=== PATIENT | female | born 1955 | race Caucasian/White ===

== ENCOUNTER → 2016-09-27 | Emergency (ER) | payer SELFPAY ==
[~2016-09-27] VITALS: Ht 167.6 cm; Wt 83.9 kg
[~2016-09-27] MED LIST: ASPIRIN 81 MG CHEW (CHILDREN'S ASA) PO ONE; HYDR-3820 PO; KCL 10 MEQ TAB (MICRO K) PO ONE; KETOROLAC 30 MG/ML VIAL IVP ONE; LEVO25TA5 PO; LISI-556 PO; MELO15TA39 PO; RX-NITROGLYCERIN 0.4 MG TAB BTL 25'S SL PRN
[2016-09-27 16:34] LABS: BASOPHILS % (AUTO) 0 % (0-10); EOSINOPHILS # (AUTO) 0.1 10^3/uL (0.0-0.3); EOSINOPHILS % (AUTO) 1 % (0-10); LYMPHOCYTES # (AUTO) 3.8 X 10^3 (1.0-4.0); LYMPHOCYTES % (AUTO) 42 % (12-44); MEAN CORPUSCULAR HEMOGLOBIN 34 PG (25-34); MEAN CORPUSCULAR HGB CONC 35 G/DL (32-36); MEAN CORPUSCULAR VOLUME 96 FL (80-99); MEAN PLATELET VOLUME 10.8 FL (7.4-10.4); MONOCYTES # (AUTO) 0.6 X 10^3 (0.0-1.0); MONOCYTES % (AUTO) 7 % (0-12); NEUTROPHILS # (AUTO) 4.4 X 10^3 (1.8-7.8); NEUTROPHILS % (AUTO) 50 % (42-75); PLATELET COUNT 210 10^3/uL (130-400); RED BLOOD COUNT 4.03 10^6/uL (4.35-5.85); RED CELL DISTRIBUTION WIDTH 12.3 % (10.0-14.5)
--- NOTE | 2016-09-27 16:43 | ED Chest Pain ---
General Chief Complaint: Chest Pain Stated Complaint: CP/ELEV BP Source: patient Exam Limitations: no limitations History of Present Illness Time seen by provider: 16:21 Initial Comments This 60-year-old woman presents to the emergency room with complaints of pain under the left breast and elevated blood pressure at home that started yesterday. She has also had some sensation of disequilibrium that occurred about 2 days ago. 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 She has no known coronary artery disease or pulmonary disease. She is a smoker of tobacco and marijuana. She denies any alcohol or drug use. Pain is presently a 5 out of 10 and is heavy in nature. It radiates to her shoulders. This seems to be difficult to separate from her chronic back pain. She reports feeling better lying down. Left upper and lower chest are tender to palpation. Allergies and Home Medications Allergies Coded Allergies: Penicillins (Verified Allergy, Unknown, 09/27/16) Home Medications Hydrocodone/Acetaminophen 1 Each Tablet, 1 EACH PO, (Reported) Levothyroxine Sodium 25 Mcg Tablet, 25 MCG PO, (Reported) Lisinopril 5 Mg Tablet, 5 MG PO DAILY, (Reported) Meloxicam 15 Mg Tablet, 15 MG PO, (Reported) Review of Systems Constitutional: no symptoms reported EENTM: No Symptoms Reported Respiratory: See HPI Cardiovascular: See HPI Gastrointestinal: No Symptoms Reported Genitourinary: No Symptoms Reported Musculoskeletal: no symptoms reported Skin: no symptoms reported Psychiatric/Neurological: See HPI Endocrine: No Symptoms Reported Past Qihtcrz-Gbkrrt-Tfgbqr Hx Patient Social History Alcohol Use: Denies Use Recreational Drug Use: Yes Surgeries HX Surgeries: Yes Surgeries: Gallbladder, Hysterectomy Respiratory Hx Respiratory Disorders: Yes (tobaccoism) Cardiovascular Hx Cardiac Disorders: Yes Cardiac Disorders: Hypertension Neurological Hx Neurological Disorders: No Genitourinary Hx Genitourinary Disorders: No Gastrointestinal Hx Gastrointestinal Disorders: No Musculoskeletal Hx Musculoskeletal Disorders: Yes Musculoskeletal Disorders: Arthritis, Chronic Back Pain Endocrine Hx Endocrine Disorders: Yes Endocrine Disorders: Hypothyroidsim Physical Exam Vital Signs Vital Sign - Last 12Hours 09/27/16 16:19 Temp 99.0 Pulse 100 Resp 18 B/P (MAP) 145/84 Pulse Ox 98 O2 Delivery Room Air Capillary Refill : General Appearance: WD/WN, Mild Distress HEENT: PERRL/EOMI, Normal ENT Inspection Neck: Normal Inspection Respiratory: Lungs Clear, Normal Breath Sounds, No Accessory Muscle Use, No Respiratory Distress, Other (left chest significantly tender to palpation) Cardiovascular: Regular Rate, Rhythm, No Edema, No Murmur Gastrointestinal: Normal Bowel Sounds, Non Tender, Soft Extremity: Normal Inspection, Non Tender, No Calf Tenderness, No Pedal Edema, Other (negative Nancy) Neurologic/Psychiatric: Alert, Oriented x3, No Motor/Sensory Deficits, Normal Mood/Affect, signs cleaner II-XII Norm as Tested Skin: Normal Color, Warm/Dry Progress/Results/Core Measures Results/Orders Lab Results Laboratory Tests Test 09/27/16 16:27 Range/Units White Blood Count 9.0 4.3-11.0 10^3/uL Red Blood Count 4.03 L 4.35-5.85 10^6/uL Hemoglobin 13.6 11.5-16.0 G/DL Hematocrit 39 35-52 % Mean Corpuscular Volume 96 80-99 FL Mean Corpuscular Hemoglobin 34 25-34 PG Mean Corpuscular Hemoglobin Concent 35 32-36 G/DL Red Cell Distribution Width 12.3 10.0-14.5 % Platelet Count 210 130-400 10^3/uL Mean Platelet Volume 10.8 H 7.4-10.4 FL Neutrophils (%) (Auto) 50 42-75 % Lymphocytes (%) (Auto) 42 12-44 % Monocytes (%) (Auto) 7 0-12 % Eosinophils (%) (Auto) 1 0-10 % Basophils (%) (Auto) 0 0-10 % Neutrophils # (Auto) 4.4 1.8-7.8 X 10^3 Lymphocytes # (Auto) 3.8 1.0-4.0 X 10^3 Monocytes # (Auto) 0.6 0.0-1.0 X 10^3 Eosinophils # (Auto) 0.1 0.0-0.3 10^3/uL Basophils # (Auto) 0.0 0.0-0.1 10^3/uL Prothrombin Time 12.3 12.2-14.7 SEC INR Comment 0.9 0.8-1.4 Activated Partial Thromboplast Time 32 24-35 SEC Sodium Level 139 135-145 MMOL/L Potassium Level 3.2 L 3.6-5.0 MMOL/L Chloride Level 101 98-107 MMOL/L Carbon Dioxide Level 25 21-32 MMOL/L Anion Gap 13 5-14 MMOL/L Blood Urea Nitrogen 15 7-18 MG/DL Creatinine 1.18 0.60-1.30 MG/DL Estimat Glomerular Filtration Rate 47 BUN/Creatinine Ratio 13 Glucose Level 113 H 70-105 MG/DL Calcium Level 10.1 8.5-10.1 MG/DL Magnesium Level 2.4 1.8-2.4 MG/DL Total Bilirubin 0.5 0.1-1.0 MG/DL Aspartate Amino Transf (AST/SGOT) 15 5-34 U/L Alanine Aminotransferase (ALT/SGPT) 10 0-55 U/L Alkaline Phosphatase 54 40-136 U/L Myoglobin 53.9 10.0-92.0 NG/ML Troponin I < 0.30 <0.30 NG/ML Total Protein 7.7 6.4-8.2 G/DL Albumin 4.8 H 3.2-4.5 G/DL Thyroid Stimulating Hormone (TSH) 2.46 0.35-4.94 UIU/ML Free Thyroxine 1.11 0.70-1.48 NG/DL My Orders Orders - MISHEL WHALEN MD Cbc With Automated Diff (09/27/16 16:29) Magnesium (09/27/16 16:29) Chest 1 View, Ap/Pa Only (09/27/16 16:29) Ekg Tracing (09/27/16 16:29) Cardiac Profile 1 (09/27/16 16:29) Comprehensive Metabolic Panel (09/27/16 16:29) Myoglobin Serum (09/27/16 16:29) Protime With Inr (09/27/16 16:29) Partial Thromboplastin Time (09/27/16 16:29) O2 (09/27/16 16:29) Monitor-Rhythm Ecg Trace Only (09/27/16 16:29) Aspirin Chewable Tablet (Baby Aspirin Ch (09/27/16 16:30) Rx-Nitroglycerin Sl Tabs (Rx-Nitrostat S (09/27/16 16:30) Saline Lock/Iv-Start (09/27/16 16:29) Ketorolac Injection (Toradol Injection) (09/27/16 16:45) Thyroid Stimulating Hormone (09/27/16 16:55) Free T4 (Free Thyroxine) (09/27/16 16:55) Potassium Chloride (Tablet) (Klor Con Ta (09/27/16 18:00) Medications Given in ED Vital Signs/I&O Vital Sign - Last 12Hours 09/27/16 09/27/16 09/27/16 16:19 16:39 18:13 Temp 99.0 Pulse 100 58 Resp 18 18 B/P (MAP) 145/84 Pulse Ox 98 98 O2 Delivery Room Air Room Air Progress Note : Time: 16:43 Progress Note Patient is significant improvement in her pain with nitroglycerin. Since pain seems musculoskeletal in nature with tenderness to palpation. Toradol is being ordered. ECG Initial ECG Impression Date: September 27, 2016 Initial ECG Impression Time: 16:23 Initial ECG Rate: 106 Initial ECG Rhythm: S.Tach Initial ECG Intervals: Normal Comment Sinus tachycardia with no ST elevation or depression. No abnormal intervals or axis deviation. Diagnostic Imaging Diagonstic Imaging: Xray Plain Films/CT/US/NM/MRI: chest Comments Chest x-ray viewed by me and report reviewed. See report below: NAME: TRACIE COELHO MED REC#: [id number] PT STATUS: REG ER : 1955 PHYSICIAN: MISHEL WHALEN MD ADMIT DATE: 09/27/16/ER Draft Date of Exam:09/27/16 CHEST 1 VIEW, AP/PA ONLY INDICATION: Chest pain. COMPARISON: None. FINDINGS: A single frontal view of the chest demonstrates normal heart size and pulmonary vascularity. The lungs are well aerated and clear. No large pleural effusion or pneumothorax is seen. The visualized osseous structures show no acute abnormalities. There is aortic atherosclerosis. IMPRESSION: No acute cardiopulmonary process. Dictated on workstation # [id number] Dict: 09/27/16 1649 Trans: 09/27/16 1652 [id number] Interpreted by: ANN MCQUEEN Departure Impression Impression: Primary Impression: Chest wall pain Additional Impression: Hypokalemia Disposition: 01 HOME, SELF-CARE Condition: Improved Departure-Patient Inst. Decision time for Depature: 17:45 Referrals: NO,LOCAL PHYSICIAN (PCP/Family) Primary Care Physician Patient Instructions: Chest Pain That Is Not Caused by the Heart (DC) Add. Discharge Instructions: You may take ibuprofen up to 600 mg every 6 hours as needed for pain. You may additionally take Tylenol (acetaminophen) up to 1000 mg every 6 hours as needed for pain. Use the prednisone steroid as prescribed to help calm inflammation in your chest. Follow-up with your primary care provider as soon as possible. Call the office first thing in the morning to schedule the appointment. Return to the emergency room if symptoms worsen. Work toward quitting smoking. All discharge instructions reviewed with patient and/or family. Voiced understanding. MISHEL WHALEN MD September 27, 2016 16:43
[2016-09-27 16:52] LABS: ALANINE AMINOTRANSFERASE 10 U/L (0-55); ALBUMIN 4.8 G/DL (3.2-4.5); ANION GAP 13 MMOL/L (5-14); ASPARTATE AMINO TRANSFERASE 15 U/L (5-34); BILIRUBIN,TOTAL 0.5 MG/DL (0.1-1.0); BLOOD UREA NITROGEN 15 MG/DL (7-18); BUN/CREATININE RATIO 13; CALCIUM 10.1 MG/DL (8.5-10.1); CARBON DIOXIDE 25 MMOL/L (21-32); CHLORIDE 101 MMOL/L (98-107); CREATININE SERUM 1.18 MG/DL (0.60-1.30); GFR ESTIMATED 47; GLUCOSE 113 MG/DL (70-105); POTASSIUM 3.2 MMOL/L (3.6-5.0); SODIUM 139 MMOL/L (135-145); TOTAL PROTEIN 7.7 G/DL (6.4-8.2)
--- NOTE | 2016-09-27 16:53 | Diagnostic Imaging Report ---
INDICATION: Chest pain. COMPARISON: None. FINDINGS: A single frontal view of the chest demonstrates normal heart size and pulmonary vascularity. The lungs are well aerated and clear. No large pleural effusion or pneumothorax is seen. The visualized osseous structures show no acute abnormalities. There is aortic atherosclerosis. IMPRESSION: No acute cardiopulmonary process. Dictated by: Dictated on workstation # [id number]
[2016-09-27 17:12] LABS: MYOGLOBIN SERUM 53.9 NG/ML (10.0-92.0)
[2016-09-27 17:31] LABS: THYROID STIMULATING HORMONE 2.46 UIU/ML (0.35-4.94)
[2016-09-27 17:53] LABS: MAGNESIUM 2.4 MG/DL (1.8-2.4)
[2016-09-27 18:13] VITALS: BP 137/69
[2016-09-27 20:54] LABS: INR 0.9 (0.8-1.4); PROTHROMBIN TIME PATIENT 12.3 SEC (12.2-14.7)
== END | disposition home or self-care (01) ==
LOC: EDUNIT# 16:19 → ER 16:21
DX: R07.89 Other chest pain (principal); E87.6 Hypokalemia; I10 Essential (primary) hypertension; F17.210 Nicotine dependence, cigarettes, uncomplicated; F12.90 Cannabis use, unspecified, uncomplicated; Z79.899 Other long term (current) drug therapy
CPT/HCPCS: 36415; 71010; 80053; 83735; 83874; 84439; 84443; 84484; 85025; 85610; 85730; 93005; 93041

== ENCOUNTER 2019-10-09 11:50 | Emergency (ER) | payer MEDICAID, OTHER ==
[~2019-10-09] VITALS: Ht 165.1 cm; Wt 66.7 kg
[2019-10-09 11:50] VITALS: BP 167/74
[~2019-10-09 11:50] MED LIST changes: +ACHYD1T PO; -ASPIRIN 81 MG CHEW (CHILDREN'S ASA) PO ONE; -HYDR-3820 PO; -KCL 10 MEQ TAB (MICRO K) PO ONE; -KETOROLAC 30 MG/ML VIAL IVP ONE; -RX-NITROGLYCERIN 0.4 MG TAB BTL 25'S SL PRN
[2019-10-09] MEDS ORDERED: NITROGLYCERIN 0.4 MG SL TABS BTL 25'S SL ONE (11:58)
[2019-10-09] MEDS: NITROGLYCERIN 0.4 MG SL TABS BTL 25'S SL PRN ×2 (12:01→13:14)
--- NOTE | 2019-10-09 12:06 | ED Chest Pain ---
General Stated Complaint: CHEST PAIN Source: patient Exam Limitations: no limitations History of Present Illness Date Seen by Provider: Oct 09, 2019 Time Seen by Provider: 12:02 Initial Comments To ER with reports of chest pain. She was at a wellness clinic in [facility] where she is from and she complained of some left-sided facial abnormal sensation as well as left arm abnormal sensation that began yesterday around 5 PM. She has no trouble walking or speaking. She has no visual changes or troubles. She also reports central chest pain. They gave 325 mg of aspirin at the clinic and sent her here to the emergency room with concern of stroke. However she states the left face and left arm abnormal sensation seems to originate in the chest and spread outward from there. She believes this chest pain was caused by stress from her who is 72 and supposed to only drink 2 beers per day but yesterday he and a friend drink a 30 pack. To help cope with this she took a Xanax. She then went to sleep and awakened this morning still not feeling well. She also has some suprapubic abdominal discomfort which she re lates to constipation from hydrocodone. She smokes one pack of cigarettes per day. Timing/Duration: changing over time Severity/Quality: moderate Location: central Radiation: no radiation Prior CP/Workup: no prior chest pain Allergies and Home Medications Allergies Coded Allergies: Penicillins (Verified Allergy, Unknown, 09/27/16) Home Medications Lisinopril 5 Mg Tablet, 5 MG PO DAILY, (Reported) Patient Home Medication List Home Medication List Reviewed: Yes Review of Systems Review of Systems Constitutional: see HPI; No chills, No fever EENTM: No Symptoms Reported Respiratory: No Symptoms Reported; Denies Cough, Denies Shortness of Air Cardiovascular: Chest Pain Gastrointestinal: No Symptoms Reported; Denies Difficulty Swallowing, Denies Nausea Genitourinary: No Symptoms Reported Musculoskeletal: no symptoms reported Skin: no symptoms reported Psychiatric/Neurological: See HPI, Paresthesia Endocrine: No Symptoms Reported Past Lkwuzmk-Vcbklx-Rkwkjd Hx Past Medical History Surgeries: Yes Gallbladder, Hysterectomy Cardiac: Yes Hypertension Neurological: No Genitourinary: No Gastrointestinal: No Musculoskeletal: Yes Arthritis, Chronic Back Pain Hypothyroidsim Physical Exam Vital Signs Vital Signs - First Documented 10/09/19 11:50 Pulse 83 Resp 15 B/P (MAP) 167/74 (105) Pulse Ox 99 O2 Delivery Room Air Capillary Refill : Height, Weight, BMI Height: 5'6.00" Weight: 185lbs. oz. 83.140804ag; BMI Method:Stated General Appearance: No Apparent Distress, Thin (appears much older than stated age) Respiratory: No Accessory Muscle Use, No Respiratory Distress Gastrointestinal: Normal Bowel Sounds, Non Tender, Soft Extremity: Normal Capillary Refill, Normal Inspection Neurologic/Psychiatric: Alert, Oriented x3 Skin: Normal Color, Warm/Dry Other comments NIH score is one for mild sensory change to left arm and left cheek. NO sensory change to left leg. No weakness of any extremity, no drift of any extremity. Speech is clear and appropriate. Progress/Results/Core Measures Results/Orders Lab Results Laboratory Tests Test 10/09/19 11:57 10/09/19 14:14 Range/Units White Blood Count 7.0 4.3-11.0 10^3/uL Red Blood Count 4.02 L 4.35-5.85 10^6/uL Hemoglobin 13.5 11.5-16.0 G/DL Hematocrit 38 35-52 % Mean Corpuscular Volume 96 80-99 FL Mean Corpuscular Hemoglobin 34 25-34 PG Mean Corpuscular Hemoglobin Concent 35 32-36 G/DL Red Cell Distribution Width 12.3 10.0-14.5 % Platelet Count 169 130-400 10^3/uL Mean Platelet Volume 11.0 H 7.4-10.4 FL Neutrophils (%) (Auto) 59 42-75 % Lymphocytes (%) (Auto) 33 12-44 % Monocytes (%) (Auto) 6 0-12 % Eosinophils (%) (Auto) 2 0-10 % Basophils (%) (Auto) 0 0-10 % Neutrophils # (Auto) 4.1 1.8-7.8 X 10^3 Lymphocytes # (Auto) 2.3 1.0-4.0 X 10^3 Monocytes # (Auto) 0.5 0.0-1.0 X 10^3 Eosinophils # (Auto) 0.1 0.0-0.3 10^3/uL Basophils # (Auto) 0.0 0.0-0.1 10^3/uL Prothrombin Time 12.4 12.2-14.7 SEC INR Comment 0.9 0.8-1.4 Activated Partial Thromboplast Time 32 24-35 SEC D-Dimer 0.44 0.00-0.49 UG/ML Sodium Level 137 135-145 MMOL/L Potassium Level 3.7 3.6-5.0 MMOL/L Chloride Level 100 98-107 MMOL/L Carbon Dioxide Level 25 21-32 MMOL/L Anion Gap 12 5-14 MMOL/L Blood Urea Nitrogen 14 7-18 MG/DL Creatinine 1.58 H 0.60-1.30 MG/DL Estimat Glomerular Filtration Rate 33 BUN/Creatinine Ratio 9 Glucose Level 111 H 70-105 MG/DL Calcium Level 9.6 8.5-10.1 MG/DL Corrected Calcium 8.5-10.1 MG/DL Magnesium Level 1.8 1.6-2.4 MG/DL Total Bilirubin 0.4 0.1-1.0 MG/DL Aspartate Amino Transf (AST/SGOT) 17 5-34 U/L Alanine Aminotransferase (ALT/SGPT) 9 0-55 U/L Alkaline Phosphatase 84 40-136 U/L Myoglobin 42.2 10.0-92.0 NG/ML Troponin I < 0.028 < 0.028 <0.028 NG/ML Total Protein 7.5 6.4-8.2 GM/DL Albumin 4.7 H 3.2-4.5 GM/DL My Orders Orders - JENNY MASSEY APRN Cbc With Automated Diff (10/09/19 11:57) Magnesium (10/09/19 11:57) Chest 1 View, Ap/Pa Only (10/09/19 11:57) Ekg Tracing (10/09/19 11:57) Comprehensive Metabolic Panel (10/09/19 11:57) Myoglobin Serum (10/09/19 11:57) Protime With Inr (10/09/19 11:57) Partial Thromboplastin Time (10/09/19 11:57) O2 (10/09/19 11:57) Monitor-Rhythm Ecg Trace Only (10/09/19 11:57) Lipid Panel (10/10/19 06:00) Ed Iv/Invasive Line Start (10/09/19 11:57) Troponin I (10/09/19 11:57) Ct Head Wo (10/09/19 11:57) Nitroglycerin 0.4 Mg Btl 25's (Nitrostat (10/09/19 12:00) Nitroglycerin 0.4 Mg Btl 25's (Nitrostat (10/09/19 11:58) Fibrin Degradation Products (10/09/19 11:57) Mri Brain W/O Contrast (10/09/19 13:11) Troponin I (10/09/19 13:59) Medications Given in ED Current Medications Medications Dose Ordered Sig/Jerman Route Start Time Stop Time Status Last Admin Dose Admin Nitroglycerin 1 TAB Q 5 MIN X 3 NEEDED PRN SL 10/09/19 12:00 10/09/19 13:14 0.4 MG Vital Signs/I&O 10/09/19 10/09/19 11:50 11:50 Pulse 83 Resp 15 B/P (MAP) 167/74 (105) Pulse Ox 99 O2 Delivery Room Air Room Air Departure Communication (Admissions) 1457-patient states that she is feeling better and wants to go home. She does not want to have an MRI done Impression Primary Impression: Chest pain Qualified Codes: R07.9 - Chest pain, unspecified Disposition: HOME, SELF-CARE Condition: Stable Departure-Patient Inst. Referrals: NO,LOCAL PHYSICIAN (PCP/Family) Primary Care Physician JENNY MASSEY SERVICE ENGINEER Oct 09, 2019 12:06
[2019-10-09 12:07] LABS: BASOPHILS % (AUTO) 0 % (0-10); EOSINOPHILS # (AUTO) 0.1 10^3/uL (0.0-0.3); EOSINOPHILS % (AUTO) 2 % (0-10); HEMATOCRIT 38 % (35-52); HEMOGLOBIN 13.5 G/DL (11.5-16.0); LYMPHOCYTES # (AUTO) 2.3 X 10^3 (1.0-4.0); LYMPHOCYTES % (AUTO) 33 % (12-44); MEAN CORPUSCULAR HEMOGLOBIN 34 PG (25-34); MEAN CORPUSCULAR HGB CONC 35 G/DL (32-36); MEAN CORPUSCULAR VOLUME 96 FL (80-99); MONOCYTES # (AUTO) 0.5 X 10^3 (0.0-1.0); MONOCYTES % (AUTO) 6 % (0-12); NEUTROPHILS # (AUTO) 4.1 X 10^3 (1.8-7.8); NEUTROPHILS % (AUTO) 59 % (42-75); PLATELET COUNT 169 10^3/uL (130-400); RED CELL DISTRIBUTION WIDTH 12.3 % (10.0-14.5)
[2019-10-09 12:21] LABS: ALBUMIN 4.7 GM/DL (3.2-4.5); CHLORIDE 100 MMOL/L (98-107); POTASSIUM 3.7 MMOL/L (3.6-5.0); SODIUM 137 MMOL/L (135-145)
[2019-10-09 12:22] LABS: CALCIUM 9.6 MG/DL (8.5-10.1)
[2019-10-09 12:23] LABS: GLUCOSE 111 MG/DL (70-105); TOTAL PROTEIN 7.5 GM/DL (6.4-8.2)
[2019-10-09 12:24] LABS: CARBON DIOXIDE 25 MMOL/L (21-32)
[2019-10-09 12:25] LABS: BILIRUBIN,TOTAL 0.4 MG/DL (0.1-1.0)
[2019-10-09 12:26] LABS: ALKALINE PHOSPHATASE 84 U/L (40-136)
[2019-10-09 12:27] LABS: CREATININE SERUM 1.58 MG/DL (0.60-1.30); GFR ESTIMATED 33
--- NOTE | 2019-10-09 12:27 | Diagnostic Imaging Report ---
INDICATION: Chest pain Frontal chest obtained at 1213 p.m. and compared to 09/27/2016 Heart and mediastinal silhouette are normal in appearance. The lungs are clear. There is no pneumothorax or pleural fluid. IMPRESSION: Negative chest. Dictated by: Dictated on workstation # [id number]
[2019-10-09 12:28] LABS: BUN/CREATININE RATIO 9
[2019-10-09 12:30] LABS: ALANINE AMINOTRANSFERASE 9 U/L (0-55); MAGNESIUM 1.8 MG/DL (1.6-2.4)
[2019-10-09 12:34] LABS: FIBRIN DEGRADATION PRODUCTS 0.44 UG/ML (0.00-0.49); INR 0.9 (0.8-1.4); PROTHROMBIN TIME PATIENT 12.4 SEC (12.2-14.7)
--- NOTE | 2019-10-09 12:45 | Diagnostic Imaging Report ---
PROCEDURE: CT head without contrast. TECHNIQUE: Multiple contiguous axial images were obtained through the brain without the use of intravenous contrast. Auto Exposure Controls were utilized during the CT exam to meet ALARA standards for radiation dose reduction. INDICATION: Concussion and chest pain. No prior studies are available for comparison. FINDINGS: The ventricles and sulci are within normal limits. No sulcal effacement or midline shift is identified. No acute intra-axial or extra-axial hemorrhage is detected. Cisterns are patent. Visualized paranasal sinuses are clear. IMPRESSION: No acute intracranial process is detected. Dictated by: Dictated on workstation # [id number]
== END 2019-10-09 15:02 | disposition left against medical advice (07) ==
LOC: EDUNIT# 11:50 → ER 11:51
DX: R07.89 Other chest pain (principal); I10 Essential (primary) hypertension; F17.210 Nicotine dependence, cigarettes, uncomplicated; Z88.0 Allergy status to penicillin; Z88.8 Allergy status to other drugs, medicaments and biological substances
CPT/HCPCS: 36415; 70450; 71045; 80053; 83735; 83874; 84484; 85025; 85379; 85610; 85730; 93005; 93041

== ENCOUNTER → 2020-11-09 | Outpatient (CLI) | payer MEDICARE, OTHER ==
[~2020-11-09] MED LIST changes: -LISI-556 PO; +LISI-729 PO
--- NOTE | 2020-11-09 13:44 | Diagnostic Imaging Report ---
INDICATION: CHEST PAIN COMPARISON: 10/09/2019 FINDINGS: Frontal and lateral views of the chest demonstrate normal heart size and pulmonary vascularity. The lungs are clear. There are no signs of infiltrate, pleural effusions or pneumothoraces. The visualized osseous structures show no acute abnormalities. IMPRESSION: 1. No acute process. No signs of infiltrates, effusions or pneumothoraces. Dictated by: Dictated on workstation # [id number]
[2020-11-09 13:50] LABS: BASOPHILS % (AUTO) 0 % (0-10); EOSINOPHILS # (AUTO) 0.2 10^3/uL (0.0-0.3); EOSINOPHILS % (AUTO) 3 % (0-10); HEMATOCRIT 34 % (35-52); HEMOGLOBIN 11.5 g/dL (11.5-16.0); LYMPHOCYTES # (AUTO) 2.2 X 10^3 (1.0-4.0); LYMPHOCYTES % (AUTO) 42 % (12-44); MEAN CORPUSCULAR HEMOGLOBIN 33 pg (25-34); MEAN CORPUSCULAR HGB CONC 34 g/dL (32-36); MEAN CORPUSCULAR VOLUME 99 fL (80-99); MEAN PLATELET VOLUME 10.3 fL (9.0-12.2); MONOCYTES # (AUTO) 0.4 X 10^3 (0.0-1.0); MONOCYTES % (AUTO) 7 % (0-12); NEUTROPHILS # (AUTO) 2.5 X 10^3 (1.8-7.8); NEUTROPHILS % (AUTO) 47 % (42-75); PLATELET COUNT 177 10^3/uL (130-400); WHITE BLOOD COUNT 5.3 10^3/uL (4.3-11.0)
[2020-11-09 14:00] LABS: ALBUMIN 4.2 GM/DL (3.2-4.5)
[2020-11-09 14:01] LABS: CALCIUM 9.2 MG/DL (8.5-10.1)
[2020-11-09 14:03] LABS: TOTAL PROTEIN 6.8 GM/DL (6.4-8.2)
[2020-11-09 14:05] LABS: BILIRUBIN,TOTAL 0.3 MG/DL (0.1-1.0)
[2020-11-09 14:06] LABS: CREATININE SERUM 1.29 MG/DL (0.60-1.30)
[2020-11-09 14:09] LABS: MAGNESIUM 2.1 MG/DL (1.6-2.4)
== END ==
LOC: CARD 13:15
PROVIDERS: ATTEND Nurse Practitioner Family
DX: Z13.220 Encounter for screening for lipoid disorders (principal); E03.9 Hypothyroidism, unspecified; R07.9 Chest pain, unspecified; R00.2 Palpitations
CPT/HCPCS: 36415; 71046; 80053; 80061; 83735; 84443; 85025; 93005

== ENCOUNTER → 2020-11-12 | Outpatient (CLI) | payer MEDICARE, OTHER | LOC: CARD 12:00 | PROVIDERS: ATTEND Internal Medicine Cardiovascular Disease | DX: I35.0 Nonrheumatic aortic (valve) stenosis (principal); I31.3 Pericardial effusion (noninflammatory) | CPT/HCPCS: 93306 ==

== ENCOUNTER → 2021-02-25 | Outpatient (CLI) | payer MEDICARE, OTHER ==
[~2021-02-25] MED LIST changes: +CATHETER FLUSH 10 ML SYR IV PRN
[2021-02-25 09:00] VITALS: BP 139/71
--- NOTE | 2021-02-26 12:25 | NUCLEAR STRESS TEST ---
TREADMILL NUCLEAR STRESS TEST Date of procedure: 02/25/2021. Primary care provider: No local physician. Admitting physician: Gareth Caldera Jr., MD. INDICATION: Abnormal electrocardiogram. BASELINE ELECTROCARDIOGRAM: Sinus rhythm with nonspecific T wave changes in the early precordial leads. STRESS TEST PROCEDURE: The patient was exercised for a total of 2 minutes and 45 seconds of the standard Brandon protocol achieving a maximum MET level of 4.2. The resting heart rate was 60 bpm and the peak heart rate was 143 bpm, which represents 92% of the maximum predicted heart rate. The resting blood pressure was 139/71 mmHg and the peak blood pressure was 215/75 mmHg. This represents a normal heart rate and a hypertensive blood pressure response to exercise. The test was stopped due to fatigue. There was no chest discomfort during the test. There were no arrhythmias during the test. There were no significant stress induced electrocardiogram changes. The patient exhibited fair exercise capacity for age. NUCLEAR PROCEDURE: The patient was administered 10.8 mCi of intravenous technetium 99m Tetrofosmin at rest for the rest images. The patient was subsequently administered 31 mCi of intravenous technetium 99 M Tetrofosmin at peak stress for the stress images. Following an appropriate wait after each injection, imaging was obtained. The images were subsequently processed and reformatted in the usual views. Gated imaging was obtained. The image quality was adequate but with some degree of gastrointestinal attenuation artifact. CT attenuation correction was used as a adjunct to standard imaging. Both the irma ected and uncorrected images were reviewed for interpretation. NUCLEAR RESULTS: There was normal myocardial perfusion in all segments without evidence of infarction or ischemia. There was normal left ventricular chamber size with an end-diastolic volume of 50 mL and an end-systolic volume of 17 mL. There was no evidence of transient ischemic dilatation. The TID ratio was 1.14. There was normal wall motion in all segments with a calculated ejection fraction of 66%. IMPRESSION: 1. Normal heart rate and a hypertensive blood pressure response to exercise. 2. There was no chest discomfort, arrhythmias, or electrocardiogram changes during the test. 3. The patient exhibited fair exercise capacity for age at 2 minutes and 45 seconds of the Brandon protocol. 4. There was normal myocardial perfusion in all segments without evidence of infarction or ischemia. 5. There was normal wall motion in all segments with a calculated ejection fraction of 66%. Certain portions of this document may have been dictated utilizing voice recognition technology. Inherent to this technology, typographical and grammatical errors may exist. As much as I am diligent to identify and correct these mistakes, some errors may remain in the document. GARETH CALDERA JR, MD Feb 26, 2021 12:25
== END ==
LOC: CARD 09:30
PROVIDERS: ATTEND Internal Medicine Cardiovascular Disease
DX: R94.31 Abnormal electrocardiogram [ECG] [EKG] (principal)
CPT/HCPCS: 78452; 93017; A9502

== ENCOUNTER → 2021-03-12 | Outpatient (CLI) | payer MEDICARE, OTHER ==
[~2021-03-12] MED LIST changes: -CATHETER FLUSH 10 ML SYR IV PRN
[2021-03-12 09:13] LABS: CALCIUM 9.7 MG/DL (8.5-10.1); CREATININE SERUM 1.25 MG/DL (0.60-1.30); POTASSIUM 3.6 MMOL/L (3.6-5.0)
== END ==
LOC: LAB 08:13
PROVIDERS: ATTEND Internal Medicine Cardiovascular Disease
DX: I10 Essential (primary) hypertension (principal)
CPT/HCPCS: 36415; 80048

== ENCOUNTER → 2021-03-12 | Outpatient (CLI) | payer MEDICARE, OTHER ==
[2021-03-12 08:59] LABS: ALBUMIN 4.3 GM/DL (3.2-4.5); BILIRUBIN,TOTAL 0.5 MG/DL (0.1-1.0); CALCIUM 9.7 MG/DL (8.5-10.1); CREATININE SERUM 1.25 MG/DL (0.60-1.30); POTASSIUM 3.6 MMOL/L (3.6-5.0)
== END ==
LOC: LAB 08:23
PROVIDERS: ATTEND Orthopaedic Surgery
DX: G56.02 Carpal tunnel syndrome, left upper limb (principal); G56.22 Lesion of ulnar nerve, left upper limb
CPT/HCPCS: 36415; 80053; 93005

== ENCOUNTER → 2021-10-06 | Outpatient (CLI) | payer MEDICARE, OTHER ==
[~2021-10-06] MED LIST changes: -LISI-729 PO; +LISI5TAB20 PO
== END ==
LOC: CARD 13:00
PROVIDERS: ATTEND Internal Medicine Cardiovascular Disease
DX: I31.3 Pericardial effusion (noninflammatory) (principal)
CPT/HCPCS: 93306

== ENCOUNTER → 2021-10-29 | Outpatient (CLI) | payer MEDICARE, MEDICAID ==
--- NOTE | 2021-10-29 12:57 | Diagnostic Imaging Report ---
INDICATION: Low back pain. AP and lateral views of lumbar spine are obtained. There is mild left convexity curvature of the lumbar spine. Vertebral body heights are maintained. There is moderate narrowing of the L4-L5 disc space which is most pronounced on the left with associated prominent endplate spurring of L4 and L5. There is no evidence of an acute fracture. Sacroiliac joints and pubic symphysis are also intact. IMPRESSION: Mild left convexity curvature of the lumbar spine with L4-L5 degenerative disc disease present. Dictated by: Dictated on workstation # [id number]
--- NOTE | 2021-10-29 12:58 | Diagnostic Imaging Report ---
INDICATION: Back pain. TIME OF EXAM: 12:03 PM 3 views of the cervical spine were obtained. Curvature and alignment of the cervical spine is normal. Vertebral body heights and disc spaces are fairly well-maintained. No fracture or subluxation seen. There is no prevertebral soft tissue swelling. The odontoid is intact. IMPRESSION: No acute bony abnormality is detected. Dictated by: Dictated on workstation # [id number]
--- NOTE | 2021-10-29 13:10 | Diagnostic Imaging Report ---
Indication: Back pain. Time of Exam: 12:05 PM Frontal and lateral views of the thoracic spine were obtained. Curvature and alignment is normal. Vertebral body heights are well-maintained. No acute compression fracture is seen. There is generalized thoracic spondylosis with disc space narrowing and marginal spurring. The pedicles and paraspinous line are intact. IMPRESSION: Thoracic spondylosis. No acute bony abnormality is detected. Dictated by: Dictated on workstation # [id number]
== END ==
LOC: RAD 11:38
PROVIDERS: ATTEND Nurse Practitioner Family
DX: M47.814 Spondylosis without myelopathy or radiculopathy, thoracic region (principal); M51.36 Other intervertebral disc degeneration, lumbar region; M43.8X6 Other specified deforming dorsopathies, lumbar region
CPT/HCPCS: 72040; 72072; 72100

== ENCOUNTER 2022-04-12 09:01 | Emergency (ER) | payer MEDICARE, MEDICAID ==
[~2022-04-12] VITALS: Ht 165 cm; Wt 63.5 kg
--- NOTE | 2022-04-12 10:29 | ED Respiratory ---
General Chief Complaint: Cough/Cold/Flu Symptoms Stated Complaint: FLU-LIKE SYMPTOMS | DOG BITE 8 DAYS AGO Nursing Triage Note: since last monday c/o fatigue, fever, headache, loss of smell, no appetite, and diarrhea. denies nausea vomiting. Marybel Marrero yesterday tested for influenza, negitive yesterday. Source: patient Exam Limitations: no limitations History of Present Illness Date Seen by Provider: Apr 12, 2022 Time Seen by Provider: 09:25 Initial Comments Here with fever, headache and fatigue. Overall just does not feel well. She apparently was tested for viral illnesses yesterday but those were negative. She came in today just to verify given her symptoms. She is also concerned because she has a dog bite to the left lower leg that occurred last week and she wanted to make sure that that was not a problem. She does admit to being under a lot of stress as she lost her brother last week and her [id number] the week before. Timing/Duration: week, getting worse Severity: moderate Associated Symptoms: cough, fever/chills, nasal congestion, sore throat Allergies and Home Medications Allergies Coded Allergies: Penicillins (Verified Allergy, Unknown, 09/27/16) Patient Home Medication List Home Medication List Reviewed: Yes Hydrocodone Bit/Acetaminophen (HYDROcodone/APAP 10/325 TABLET) 1 Each Tablet, 1 EACH PO, (Reported) Entered as Reported by: ANITA MORSE on 09/27/16 1629 Levothyroxine Sodium (Levothyroxine Sodium) 25 Mcg Tablet, 25 MCG PO, (Reported) Entered as Reported by: ANITA MORSE on 09/27/16 1631 Lisinopril (Lisinopril) 5 Mg Tablet, 5 MG PO DAILY, (Reported) Entered as Reported by: ANITA MORSE on 09/27/16 1632 Meloxicam (Meloxicam) 15 Mg Tablet, 15 MG PO, (Reported) Entered as Reported by: ANITA MORSE on 09/27/16 1630 Review of Systems Review of Systems Constitutional: see HPI EENTM: nose congestion, throat pain Respiratory: cough; No wheezing Cardiovascular: No chest pain, No edema Gastrointestinal: diarrhea; No vomiting Genitourinary: no symptoms reported Skin: change in color, lesions Past Wbofpmq-Dyzaxp-Polkad Hx Patient Social History Tobacco Use?: Yes Tobacco type used: Cigarettes Smoking Status: Current Everyday Smoker Use of E-Cig and/or Vaping dev: No Substance use?: Yes Substance type: Marijuana Substance frequency: Couple times a week Alcohol Use?: No Pt feels they are or have been: No Immunizations Up To Date Tetanus Booster (TDap): Unknown PED Vaccines UTD: Yes Influenza Vaccine Up-to-Date: Yes; Up-to-Date First/Initial COVID19 Vaccinat: 2020 Second COVID19 Vaccination Ag: 2020 Third COVID19 Vaccination Date: 2020 Past Medical History Surgery/Hospitalization HX: copd Surgeries: Yes Gallbladder, Hysterectomy Respiratory: Yes (tobaccoism) Cardiac: Yes Hypertension Neurological: No Genitourinary: No Gastrointestinal: No Musculoskeletal: Yes Arthritis, Chronic Back Pain Endocrine: Yes Hypothyroidsim Family Medical History Reviewed Nursing Family Hx Physical Exam Vital Signs - First Documented 04/12/22 09:05 Temp 36.7 Pulse 78 Resp 18 B/P (MAP) 162/74 (103) Pulse Ox 98 O2 Delivery Room Air Capillary Refill : Less Than 3 Seconds Height: 5'6.00" Weight: 185lbs. oz. 83.743929ge; 23.00 BMI Method:Stated General Appearance: WD/WN, no apparent distress HEENT: PERRL/EOMI, pharyngeal erythema Neck: full range of motion, supple Respiratory: lungs clear, normal breath sounds Cardiovascular: regular rate, rhythm, no murmur Gastrointestinal: non tender, soft Extremities: non-tender, normal inspection Neurologic/Psychiatric: alert, normal mood/affect Skin: ecchymosis, other (Does have a puncture type wound to the lateral aspect of the left lower extremity with distal bruising. Wound actually appears to be healing well and there is no significant surrounding erythema or abscess. Nontender over wound. There is the distal ecchymosis that is also nontender.) Progress/Results/Core Measures Suspected Sepsis SIRS Temperature: Pulse: 78 Respiratory Rate: 18 Blood Pressure 162 /74 Mean: 103 Results/Orders Lab Results Laboratory Tests Test 04/12/22 09:10 Range/Units Influenza Type A (RT-PCR) Not Detected Not Detecte Influenza Type B (RT-PCR) Not Detected Not Detecte SARS-CoV-2 RNA (RT-PCR) Not Detected Not Detecte My Orders Orders - SASCHA HERNANDEZ MD Influenza A And B By Pcr (04/12/22 09:31) Covid 19 Inhouse Test (04/12/22 09:31) Vital Signs/I&O 04/12/22 09:05 Temp 36.7 Pulse 78 Resp 18 B/P (MAP) 162/74 (103) Pulse Ox 98 O2 Delivery Room Air Capillary Refill : Less Than 3 Seconds Blood Pressure Mean: 103 Progress Note : Progress Note Seen and evaluated. We will check for COVID and influenza. I did evaluate the dog bite wound and that it is overall nonconcerning and seems to be healing well. Patient may be suffering viral etiology and/or sinusitis. We will reevaluate after COVID and influenza testing. Monitor patient. 1112: Influenza and COVID test are negative. Given the fact that she has sinus congestion and fullness and that she is a smoker, we will go ahead and treat for sinusitis. I will send out prescription for doxycycline. She will use [id number] Afrin nasal spray as well. Discharged home with return precautions. Patient verbalized understanding instructions and agreement with plan. Departure Impression Primary Impression: Acute sinusitis Qualified Codes: J01.90 - Acute sinusitis, unspecified Disposition: HOME, SELF-CARE Condition: Stable Departure-Patient Inst. Decision time for Depature: 11:13 Referrals: LEATHA BABCOCK MD (PCP/Family) Primary Care Physician Patient Instructions: Sinusitis, Adult (DC) Add. Discharge Instructions: All discharge instructions reviewed with patient and/or family. Voiced understanding. Take medications as directed. You may also use Afrin nasal spray or the generic, 12-hour relief, 2 sprays to each nostril twice daily for 3 days and then stop. Do not use more than 3 days. Drink plenty of fluids and get plenty of rest. Follow-up with your doctor in a few days for recheck. Return for worse pain, fever, vomiting, weakness, breathing problems or other concerns as needed. Scripts Doxycycline Hyclate (Doxycycline Hyclate) 100 Mg Tablet 100 MG PO BID, #20 TAB 0 Refills Prov: SASCHA HERNANDEZ MD 04/12/22 SASCHA HERNANDEZ MD Apr 12, 2022 10:29
[2022-04-12] MEDS ORDERED: DOXY100T2 PO (11:14)
[2022-04-12 11:24] VITALS: BP 162/74
== END 2022-04-12 11:24 | disposition home or self-care (01) ==
LOC: EDUNIT# 09:01 → ER 09:03
DX: J01.90 Acute sinusitis, unspecified (principal); S81.832A Puncture wound without foreign body, left lower leg, initial encounter; F17.210 Nicotine dependence, cigarettes, uncomplicated; Z20.822 Contact with and (suspected) exposure to COVID-19; Z88.0 Allergy status to penicillin; W54.0XXA Bitten by dog, initial encounter
CPT/HCPCS: 87636; 99283

== ENCOUNTER → 2022-10-17 | Outpatient (CLI) | payer MEDICARE, MEDICAID ==
[~2022-10-17] MED LIST changes: +DOXY100T2 PO
--- NOTE | 2022-10-17 13:23 | Diagnostic Imaging Report ---
PROCEDURE: US Renal Bilateral. TECHNIQUE: Multiple real-time grayscale images were obtained over the kidneys in various projections bilaterally. INDICATION: Renal failure Right kidney measures 10.9 x 4.4 x 3.9 cm. Left kidney measures 9.8 x 4.6 x 4.2 cm. There is no mass, calculus or hydronephrosis seen in either kidney. The urinary bladder appeared normal. IMPRESSION: Unremarkable renal ultrasound. Dictated by: Dictated on workstation # [id number]
== END ==
LOC: RAD 08:43
PROVIDERS: ATTEND Internal Medicine Nephrology
DX: I12.9 Hypertensive chronic kidney disease with stage 1 through stage 4 chronic kidney disease, or unspecified chronic kidney disease (principal); N18.32 Chronic kidney disease, stage 3b
CPT/HCPCS: 76770